=== PATIENT | female | born 1985 | race Caucasian/White ===

== ENCOUNTER 2020-03-18 10:22 | Outpatient (CLI) | payer BC ==
[~2020-03-18] VITALS: Ht 162.6 cm; Wt 87.7 kg
[~2020-03-18 10:22] MED LIST: CEFTIN 250250 MG/TAB PO; CLINDAMYCIN300 MG PO; LEXAPRO 10MG10 MG PO; MERANA; MOTRIN 600600 MG/TAB PO; NO HOME MEDICATIONS; NORCO 325 MG-51 TAB PO; PERCOCET 325 MG1 TA2 PO; PRENATAL1 TA1 PO
[2020-03-18 10:35] VITALS: BP 120/74; PULSE 106
[2020-03-18] MEDS ORDERED: ZOLOFT 50MG50 MG PO (10:41)
[2020-03-18] MEDS ORDERED: TRANDATE 200MG200 MG PO (10:41)
[2020-03-18 11:17] LABS: HEMATOCRIT 37.1 % (37.0-47.0); HEMOGLOBIN 11.9 g/dl (12.5-16.0); MEAN CELL VOLUME 82 fl (80.0-100.0); MEAN CORPUSCULAR HEMOGLOBIN 26 pg (27.0-31.0); MEAN CORPUSCULAR HGB CONC 32 g/dl (33.0-37.0); MEAN PLATELET VOLUME 12.1 fl (7.4-10.4); PLATELET COUNT 361 K/mm3 (130-400); RED BLOOD COUNT 4.51 M/mm3 (4.10-5.30); REDCELL DISTRIBUTION WIDTH-CV 13.6 % (11.5-14.5)
--- NOTE | 2020-03-18 11:25 | NUR ---
1037 PATIENT HERE FROM OFFICE FOR COMPLAINTS OF NOT FEELING WELL AND A NONREACTIVE STRIP IN OFFICE. INCREASED BLOOD PRESSURE MEDS YESTERDAY AND HAS NOT FELT WELL SINCE. EFM ON FHT 150 NO ACCELERATIONS AT THIS TIME BUT BABY ACTOVE. NO CONTRACTIONS ON MONITOR OR FELT BY PATIENT. IV STARTED IN LEFT HAND AND IVF STARTED PER ORDER. LABS DRAWN AT THIS TIME AND SENT TO LAB. PATIENT STATES JUST DOESNT FEEL WELL.
[2020-03-18 11:27] LABS: ALBUMIN 3.9 gm/dL (3.5-5.0); BILIRUBIN,TOTAL 0.4 mg/dL (0.0-1.0); CALCIUM 9.5 mg/dL (8.4-10.2); CREATININE, serum 0.64 (0.52-1.25); POTASSIUM 4.4 mmol/L (3.4-5.0); TOTAL PROTEIN 7.5 gm/dL (6.4-8.2)
[2020-03-18 11:30] VITALS: BP 121/67; PULSE 105
--- NOTE | 2020-03-18 11:32 | NUR ---
1137 PATIENT COMPLAINS OF HEADACHE. CALLED AND ORDERS GIVEN. TYLENOL 1000 MG PO GIVEN AT THIS TIME
--- NOTE | 2020-03-18 12:05 | NUR ---
Patient given discharge instructions and agrees with plan. IV removed and patient tolerates well. 1210: Patient ambulates off unit with spouse.
[2020-03-18 12:07] VITALS: BP 122/69; PULSE 92; TEMP 97.6
== END 2020-03-18 12:00 | disposition home or self-care (01) ==
LOC: LDRO 10:22
PROVIDERS: Obstetrics & Gynecology
DX: O13.3 Gestational [pregnancy-induced] hypertension without significant proteinuria, third trimester (principal); Z3A.36 36 weeks gestation of pregnancy; Z86.14 Personal history of Methicillin resistant Staphylococcus aureus infection
CPT/HCPCS: J7030